=== PATIENT | male | born 2000 | race Hispanic/Latino ===

== ENCOUNTER 2018-05-15 15:33 | Emergency (ER) | payer OTHER ==
[2018-05-15 16:16] VITALS: BMI 24.3
[2018-05-15] MEDS ORDERED: Tmp-Smz 800 mg-160 mg DS Tab PO STA (17:41)
[2018-05-15 17:46] VITALS: BP 123/73; PULSE 72; RESP 18; TEMP 98.7; O2SAT 99
[2018-05-15] MEDS ORDERED: Bacitracin 500 Units/gm Oint Foilpak UD ONE (18:22)
--- NOTE | 2018-05-15 18:34 | ED PDOC ---
Arrival/HPI - General Chief Complaint: Lower Extremity Problem/Injury Time Seen by Provider: 05/15/18 16:10 Historian: Patient - History of Present Illness Narrative History of Present Illness (Text): 05/15/18 19:00 18yr old male presents today with 2 month history of ingrown toe nail on both right and left great toes. pt states he has been having pain and swelling for the past 2 months and today he "picked" at the toe and developed bleeding. pt c/o pain but does not take or want anything for pain. pt denies fever/chills. no dizziness or weakness. pt states his right great toe is also ingrown and has been for the past few months, but not as bad as the left. Past Medical History - Provider Review Nursing Documentation Reviewed: Yes - Travel History Have you recently traveled outside [place] w/in the past 3 mons?: No - Tetanus Immunization Tetanus Immunization: Up to Date - Psychiatric Hx Substance Use: No - Surgical History Other/Comment: wisdom teeth removed. - Anesthesia Hx Anesthesia: No Family/Social History - Physician Review Nursing Documentation Reviewed: Yes Family/Social History: Unknown Family HX Smoking Status: Never Smoked Hx Alcohol Use: No Hx Substance Use: No Allergies/Home Meds Allergies/Adverse Reactions: Allergies Penicillins Allergy (Verified 05/15/18 16:16) URTICARIA Review of Systems - Review of Systems Constitutional: absent: Fatigue, Fevers Respiratory: absent: SOB, Cough Cardiovascular: absent: Chest Pain, Palpitations Gastrointestinal: absent: Abdominal Pain Musculoskeletal: Arthralgias. absent: Back Pain, Neck Pain Skin: Other (ingrown toe nail). absent: Rash, Pruritis Psychiatric: absent: Anxiety, Depression Physical Exam Vital Signs Reviewed: Yes Vital Signs Temp Pulse Resp BP Pulse Ox 05/15/18 17:45 98.7 F 72 18 123/73 99 Temperature: Afebrile Blood Pressure: Normal Pulse: Regular Respiratory Rate: Normal Appearance: Positive for: Well-Appearing, Non-Toxic, Comfortable Pain Distress: None Mental Status: Positive for: Alert and Oriented X 3 - Systems Exam Head: Present: Atraumatic Respiratory/Chest: Present: Clear to Auscultation Cardiovascular: Present: Regular Rate and Rhythm Lower Extremity: Present: Other (right great toe; + swelling and slight erythema noted to lateral cuticle; no purulent discharge. left great toe; + swelling and slight erythema noted to both the medial and lateral cuticles. minimal tenderness. cap refill <2. sensation and distal pulses intact. ) Neurological: Present: GCS=15, Speech Normal Skin: Present: Warm, Dry Psychiatric: Present: Alert, Oriented x 3 Medical Decision Making ED Course and Treatment: 05/15/18 19:03 18yr old male with 2 month history of ingrown toe nails to both right and left great toes. bactrim given po pt refused motrin for pain pt advised to f/u with roller embosser. advised warm compresses, apply bacitracin twice daily. advised immediate return if symptoms worsen,persist or if new symptoms develop. Patient verbalized understanding of discharge instructions and need for follow- up with a roller embosser [facility]. All aspects of this case were discussed the attending of record. Impression: Ingrown toenail Motrin every 6 hours as needed for pain Bactrim 1 tablet twice daily 7 days Warm soaks frequently Apply bacitracin twice daily Follow-up with the roller embosser within the next 2 days Return immediately if symptoms worsen persist or if new concerning symptoms develop - Medication Orders Current Medication Orders: Discontinued Medications Trimethoprim/Sulfamethoxazole (Bactrim Ds Tab) 1 tab PO STAT STA; Protocol Stop: 05/15/18 17:42 Last Admin: 05/15/18 17:59 Dose: 1 tab Disposition/Present on Arrival - Present on Arrival Any Indicators Present on Arrival: No History of DVT/PE: No History of Uncontrolled Diabetes: No Urinary Catheter: No History of Decub. Ulcer: No History Surgical Site Infection Following: None - Disposition Have Diagnosis and Disposition been Completed?: Yes Diagnosis: Ingrown toenail Disposition: HOME/ ROUTINE Disposition Time: 18:00 Patient Plan: Discharge Condition: GOOD Discharge Instructions (ExitCare): Ingrown Toenail (DC) Additional Instructions: Motrin every 6 hours as needed for pain Bactrim 1 tablet twice daily 7 days Warm soaks frequently Apply bacitracin twice daily Follow-up with the roller embosser within the next 2 days Return immediately if symptoms worsen persist or if new concerning symptoms develop Prescriptions: Bacitracin OINT 1 applic TP BID #1 tube Ibuprofen [Motrin] 600 mg PO Q6H PRN #20 tab PRN Reason: pain/fever reduction Sulfamethoxazole/Trimethoprim [Bactrim DS 800 mg-160 mg] 1 tab PO BID #14 tab Referrals: Adrian Cline DPM [Staff Provider] - Follow up with primary Gilma Porter DPM [Staff Provider] - Follow up with primary Cliff Varma DPM [Staff Provider] - Follow up with primary Tara Rehman MD [Medical Doctor] - Follow up with primary [facility] [Outside] - Follow up with primary [facility] [Outside] - Follow up with primary Forms: [employer] (Kinyarwanda), WORK NOTE
== END 2018-05-15 18:48 | disposition home or self-care (01) ==
LOC: ED 15:33
DX: L60.0 Ingrowing nail (principal)